=== PATIENT | female | born 1945 | race Caucasian/White ===

== ENCOUNTER 2016-09-18 09:05 | Day surgery (SDC) ==
[2016-09-18] MEDS ORDERED: LIDOCAINE 1% 20 ML MDV ID ONE (09:45)
[2016-09-18] MEDS ORDERED: DIPRIVAN 20 ML VIAL IVP ONE (11:19)
[2016-09-18] MEDS ORDERED: VERSED ONE (11:19)
[2016-09-18 12:28] VITALS: BP 132/72; TEMP 98.1
--- NOTE | 2016-09-19 09:35 | OP ---
INDICATIONS FOR PROCEDURE: 71-year-old female presents for a screening colonoscopy exam. MEDICATIONS: SEE ANESTHESIA NOTES. PROCEDURE: COLONOSCOPY, SNARE POLYPECTOMY WITH BIOPSY RETRIEVAL OF POLYP. REPORT: The risks, benefits, alternatives and limitations were discussed in detail with the patient. Informed consent was obtained. After adequate sedation was achieved, a digital rectal exam revealed good tone, no masses. The colonoscope was introduced into the rectum and advanced under direct visual guidance to the cecum. The cecum was identified by the appendiceal orifice and IC valve. I then slowly withdrew the scope in a circumferential manner examining the mucosa quite carefully. I looked on the proximal and distal side of folds and flexures as best as possible. I was able to retroflex the scope in the right side of the colon as well as left side of the colon. The colonic mucosa was unremarkable its entire length except for a small diminutive polyp in the proximal sigmoid colon. I removed this by snare technique. I used a biopsy forcep to retrieve this diminutive polyp. No other abnormalities were noted including on retroflex view of the anal canal. The prep was good. The withdrawal time was 9 minutes and 0 seconds. The patient tolerated the procedure well with stable vital signs and pulse oximetry throughout. IMPRESSION: 1. DIMINUTIVE POLYP REMOVED AND RETRIEVED ABOVE. RECOMMENDATIONS: 1. Await pathology results. If there are adenomatous changes, I recommend a surveillance examination again in 5 years otherwise screening again in 10 years if she is clinically well, sooner if there are any signs or symptoms to indicate otherwise. 2. I will see her back in the office as needed. CC: DR. MARIANA STRAUSS
== END 2016-09-18 12:25 | disposition home or self-care (01) ==
LOC: SURG 09:05
PROVIDERS: ATTEND Internal Medicine Gastroenterology
DX: Z12.11 Encounter for screening for malignant neoplasm of colon (principal); D12.5 Benign neoplasm of sigmoid colon

== ENCOUNTER 2016-11-08 22:18 | Inpatient (IN) ==
--- NOTE | 2016-11-08 22:52 | ED.PDOC ---
General ED Provider: Dr. ELENI FITCH Chief Complaint: Fever Stated Complaint: Coughing conegsted, getting sputum yellow to green, fever of 100 at home. Time Seen by Physician: 22:49 Mode of Arrival: Walk-In Information Source: Patient Primary Care Provider: RADHA PEÑA Nursing and Triage Documentation Reviewed and Agree: Yes Respiratory Complaint Exam - Respiratory Complaint/Exam Symptoms Are: Still present Timing: Constant Initial Severity: Moderate Current Severity: Moderate Location: Chest Character: Reports: Productive cough Aggravating: Reports: URI Alleviating: Reports: None Associated Signs and Symptoms: Reports: URI, Nasal congestion. Denies: Rapid breathing, Dyspnea, Fever, Chills, Chest pain, Pleuritic chest pain, Wheezing, Hemoptysis, Dizziness, Calf pain, Calf swelling, Edema, Hoarseness, Sinus discomfort, Vomiting, Sore throat, Weight loss, Decreased oral intake, Increased thirst, Increased appetite, Increased urination History of Healthcare-Acquired Pneumonia: No Related Surgical History: Reports: None Pulmonary Embolism Risk Factors: None Cardiac Risk Factors: Reports: Hypertension Pseudomonas Risk Factors: Reports: None Tuberculosis Risk Factors: Reports: None Status Asthmaticus Risk Factors: Reports: None Home Oxygen Use: No Recent Stress Test: No Recent Echo/LV Function: No Current Antibiotic Use: No Current Asthma Medication Use: No Respiratory Distress: None Inadequate Respiratory Effort: No Dysphagia Present: No Stridor Present: No Retractions: Not Present Differential Diagnoses: Pneumonia, Bronchitis Review of Systems - Review Of Systems Constitutional: Reports: Fever, Malaise, Weakness Eyes: Reports: No symptoms Ears, Nose, Mouth, Throat: Reports: No symptoms Respiratory: Reports: Cough Cardiac: Reports: No symptoms GI: Reports: No symptoms : Reports: No symptoms Musculoskeletal: Reports: No symptoms Skin: Reports: No symptoms Neurological: Reports: No symptoms Endocrine: Reports: No symptoms Hematologic/Lymphatic: Reports: No symptoms All Other Systems: Reviewed and Negative Past Medical History - Past Medical History Previously Healthy: Yes Endocrine: Reports: Dyslipidemia Cardiovascular: Reports: None Respiratory: Reports: None Hematological: Reports: None Gastrointestinal: Reports: GERD Genitourinary: Reports: None Neuro/Psych: Reports: None Musculoskeletal: Reports: None Cancer: Reports: None Last Menstrual Period: 1992 - Surgical History General Surgical History: Reports: None - Family History Family History: Reports: None - Social History Smoking Status: Former smoker Hx Substance Use: No Alcohol Screening: Occasionally - Immunizations Tetanus Shot up to Date: No Physical Exam - Physical Exam Appearance: Ill-appearing, Obese Ill-appearing: Moderate Eyes: ANGELICA, EOMI, Conjunctiva clear ENT: Ears normal, Nose normal, Oropharynx normal Respiratory: Crackles (rt lower) Cardiovascular: RRR, Pulses normal, No rub, No murmur GI/: Soft, Nontender, No masses, Bowel sounds normal, No Organomegaly Musculoskeletal: Normal strength, ROM intact, No edema, No calf tenderness Skin: Warm, Dry, Normal color Neurological: Sensation intact, Motor intact, Reflexes intact, Cranial nerves intact, Alert, Oriented Psychiatric: Affect appropriate, Mood appropriate Interpretation - Radiology Interpretation Radiology Interpretation By: Radiologist Radiology Results: Positive Exam Interpreted: CT Scan Critical Care Note - Critical Care Note Total Time (mins): 30 Course - Course Hematology/Chemistry: 11/13/16 05:00 11/13/16 05:00 Orders, Labs, Meds: Lab Review 11/08/16 11/08/16 22:48 23:00 WBC 15.42 H RBC 4.63 Hgb 14.4 Hct 42.3 MCV 91.4 MCH 31.1 H MCHC 34.0 RDW Coeff of Seema 14.4 Plt Count 326 Immature Gran % (Auto) 0.5 Neut % (Auto) 88.3 Lymph % (Auto) 7.9 L Mclennan % (Auto) 3.0 Eos % (Auto) 0.0 Baso % (Auto) 0.3 Immature Gran # (Auto) 0.1 Neut # 13.6 H Lymph # 1.2 Mclennan # 0.5 Eos # 0.0 Baso # 0.0 Puncture Site lb O2 Saturation 93.0 L ABG pH 7.512 H* ABG pCO2 27.1 L ABG pO2 57.0 L* ABG HCO3 21.7 L ABG Total CO2 22 ABG Base Excess -1 Pierce Test + FiO2 % 21.0 Sodium 136 Potassium 3.8 Chloride 102 Carbon Dioxide 22 L Anion Gap 15.8 BUN 11 Creatinine 0.75 Estimated GFR (MDRD) 76.00 BUN/Creatinine Ratio 14.66 Glucose 115 Lactic Acid 8.3 Calcium 9.5 Total Bilirubin 0.64 AST 16 ALT 20 Alkaline Phosphatase 104 B-Natriuretic Peptide 49 Total Protein 7.3 Albumin 3.9 Globulin 3.4 Albumin/Globulin Ratio 1.15 Procalcitonin 0.05 Orders Category Date Time Status ABG DRAW REQUEST Stat CARDIO 11/08/16 22:49 Completed ABG Stat LAB 11/08/16 22:48 Completed B-TYPE NATRIURETIC PEPTIDE Stat LAB 11/08/16 23:00 Completed BLOOD CULTURE Stat LAB 11/08/16 23:00 Results CBC W/ AUTO DIFF Stat LAB 11/08/16 23:00 Completed COMPREHENSIVE METABOLIC PANEL Stat LAB 11/08/16 23:00 Completed LACTIC ACID Stat LAB 11/08/16 23:00 Completed PROCALCITONIN Stat LAB 11/08/16 23:00 Completed Ipratropium/Albuterol Neb [Duoneb] MEDS 11/08/16 23:29 Discontinued 1 vial NEB .STK-MED ONE CT CHEST W/O CONTRAST Stat RADS 11/08/16 22:48 Completed Medications Generic Name Dose Route Start Last Admin Trade Name Freq PRN Reason Stop Dose Admin Acetaminophen 650 mg 11/08/16 23:37 11/11/16 05:08 Tylenol PO 650 mg Q4H PRN Administration Mild Pain Amlodipine Besylate 5 mg 11/13/16 09:00 11/13/16 10:15 Norvasc PO 5 mg DAILY GERI Administration Aspirin 81 mg 11/09/16 21:00 11/12/16 20:37 Aspirin Ec PO 81 mg BEDTIME GERI Administration Bisoprolol Fumarate 10 mg 11/13/16 09:00 11/13/16 10:15 Zebeta PO 10 mg DAILY GERI Administration Calcium/Vitamin D 1 each 11/09/16 09:00 11/13/16 10:14 Calcium 500 + Vit D 200 Mg Tablet PO 1 each BID GERI Administration Enoxaparin Sodium 40 mg 11/09/16 09:00 11/13/16 10:13 Lovenox SUBCUT 40 mg DAILY GERI Administration Guaifenesin 600 mg 11/09/16 09:00 11/13/16 10:14 Mucinex PO 600 mg Q12HR GERI Administration Ceftriaxone Sodium 1 gm/ 50 mls @ 75 mls/hr 11/09/16 21:00 11/12/16 20:35 Sodium Chloride IV 75 mls/hr BEDTIME GERI Administration Levalbuterol HCl 1 vial 11/09/16 06:00 11/13/16 05:29 Xopenex 1.25 Mg NEB 1 vial RTQ8H GERI Administration Lisinopril 20 mg 11/13/16 09:00 11/13/16 10:14 Zestril PO 20 mg BID GERI Administration Loratadine 10 mg 11/11/16 09:00 11/13/16 10:15 Claritin PO 10 mg DAILY GERI Administration Magnesium Hydroxide 30 ml 11/11/16 08:24 11/11/16 08:30 Milk Of Magnesia PO 30 ml DAILY PRN Administration Constipation Pantoprazole Sodium 40 mg 11/09/16 08:00 11/13/16 05:39 Protonix PO 40 mg QDAC GERI Administration Prednisone 10 mg 11/12/16 08:00 11/13/16 09:09 Prednisone PO 10 mg BIDWM GERI Administration Promethazine HCl/Codeine 10 ml 11/12/16 13:12 11/12/16 13:24 Phenergan With Codeine 6.25/10 Mg/5 Ml PO 10 ml Q6H PRN Administration Cough Simvastatin 40 mg 11/09/16 21:00 11/12/16 20:37 Zocor PO 40 mg BEDTIME GERI Administration Sodium Chloride 1 syr 11/11/16 21:00 11/13/16 05:29 Saline Flush IVF 1 syr Q8HR GERI Administration Discontinued Medications Generic Name Dose Route Start Last Admin Trade Name Freq PRN Reason Stop Dose Admin Albuterol/Ipratropium 1 vial 11/08/16 23:46 11/08/16 23:47 Duoneb NEB 11/08/16 23:47 Not Given ONCE STA Alprazolam 0.5 mg 11/13/16 08:12 11/13/16 09:10 Xanax PO 11/13/16 08:13 0.5 mg ONCE STA Administration Azithromycin 500 mg 11/09/16 09:00 11/11/16 08:22 Zithromax PO 11/12/16 08:00 500 mg DAILY GERI Administration Benzonatate 200 mg 11/09/16 09:00 11/12/16 15:20 Tessalon Perles PO Not Given TID GERI Bisoprolol Fumarate 5 mg 11/12/16 08:40 11/12/16 08:47 Zebeta PO 11/12/16 08:41 5 mg ONCE STA Administration Bisoprolol Fumarate 5 mg 11/12/16 21:00 11/12/16 20:37 Zebeta PO 5 mg BID GERI Administration Bisoprolol Fumarate 10 mg 11/13/16 08:12 Zebeta PO BID GERI Enalaprilat 1.25 mg 11/12/16 06:11 11/12/16 06:19 Vasotec Iv IVP 11/12/16 06:12 1.25 mg ONCE STA Administration Enalaprilat 1.25 mg 11/13/16 05:23 11/13/16 05:29 Vasotec Iv IVP 11/13/16 05:24 1.25 mg ONCE STA Administration Ceftriaxone Sodium 1 gm/ 50 mls @ 75 mls/hr 11/08/16 23:45 11/09/16 00:06 Sodium Chloride IV 75 mls/hr DAILY GERI Administration Sodium Chloride 1,000 mls @ 75 mls/hr 11/08/16 23:45 11/09/16 00:02 Sodium Chloride IV 75 mls/hr .[id number] GERI Administration Sodium Chloride 1,000 mls @ 40 mls/hr 11/09/16 08:01 11/11/16 15:35 Sodium Chloride IV Not Given .Q25H GERI Ketorolac Tromethamine 30 mg 11/11/16 15:24 11/11/16 17:31 Toradol IVP 11/11/16 15:25 Not Given ONCE STA Lisinopril 20 mg 11/11/16 15:30 11/12/16 08:47 Zestril PO 20 mg DAILY GERI Administration Lisinopril 20 mg 11/12/16 08:41 11/12/16 08:46 Zestril PO 11/12/16 08:42 20 mg ONCE STA Administration Lorazepam 1 mg 11/12/16 08:29 11/12/16 08:47 Ativan IVP 11/12/16 08:30 1 mg ONCE STA Administration Methylprednisolone Sodium Succinate 60 mg 11/08/16 23:45 11/10/16 13:51 Solu-Medrol 125 Mg IVP 60 mg Q8HR GERI Administration Methylprednisolone Sodium Succinate 40 mg 11/10/16 21:00 11/11/16 08:22 Solu-Medrol 125 Mg IVP 40 mg Q12HR GERI Administration Potassium Chloride 40 meq 11/09/16 08:01 11/09/16 08:33 K-Dur PO 11/09/16 08:02 40 meq ONCE STA Administration Prednisone 10 mg 11/11/16 21:00 11/11/16 20:04 Prednisone PO 10 mg BID GERI Administration Sodium Chloride 1 syr 11/09/16 00:07 11/09/16 00:08 Saline Flush IVF 1 syr PRN PRN Administration To flush IV Vital Signs: Temp Pulse Resp BP Pulse Ox 11/08/16 23:30 96 11/08/16 22:19 99.8 F H 118 H 20 130/89 93 L Departure - Departure Time of Disposition: 23:00 Disposition: ADMITTED INPATIENT Discharge Problem: Bilateral pneumonia Qualifiers: Pneumonia type: due to unspecified organism Lung location: lower lobe of lung Qualifier Code: (J18.9) Pneumonia, unspecified organism Condition: Stable Pt referred to PMD for follow-up: No Allergies/Adverse Reactions: Allergies ibuprofen Adverse Reaction (Verified 11/08/16 22:31) Abdominal Pain NSAIDS (Non-Steroidal Anti-Inflamma Adverse Reaction (Verified 11/08/16 22:31) ABD PAIN Home Medications: Ambulatory Orders Aspirin [Lo-Dose Aspirin EC] 81 mg PO BEDTIME 09/17/16 Calcium Carbonate [Calcium] 600 mg PO BID 09/17/16 Lansoprazole [Prevacid] 30 mg PO DAILY 09/17/16 Simvastatin [Zocor] 40 mg PO BEDTIME 09/17/16 Disposition Discussed With: Patient, Family
--- NOTE | 2016-11-08 23:16 | CT ---
EXAM: CT of the chest without contrast. HISTORY: Cough. PROCEDURE: Contiguous axial CT images of the chest without contrast with coronal and sagittal refor mats. FINDINGS: The heart is within normal limits in size. The thoracic aorta is within normal limits in diameter. The mediastinum is normal in appearance. There are bibasilar infiltrates and patchy areas of consolidation. There is a small hiatal hernia. The adrenal glands and liver are normal in appear ance. There are gallstones in the gallbladder. The gallbladder is enlarged measuring 4.4 cm in brissa meter. Impression: Bibasilar infiltrates and consolidation consistent with pneumonia. Small hiatal hernia. Cholelithiasis with mildly enlarged gallbladder as described.
[2016-11-08 23:21] LABS: ABG PCO2 27.1 mmHg (35-45); ABG PH 7.512 (7.35-7.45)
[2016-11-08 23:21] LABS: BASOPHILS % (AUTO) 0.3 % (0.0-3.0); HEMATOCRIT 42.3 % (37.0-47.0); HEMOGLOBIN 14.4 g/dl (12.0-16.0); IMMATURE GRANULOCYTE % (AUTO) 0.5 % (0.0-5.0); LYMPHOCYTES # (AUTO) 1.2 K/uL (0.60-3.4); LYMPHOCYTES % (AUTO) 7.9 (10.0-50.0); MEAN CORPUSCULAR HEMOGLOBIN 31.1 pg (27.0-31.0); MEAN CORPUSCULAR VOLUME 91.4 fl (81.0-99.0); MONOCYTES # (AUTO) 0.5 K/uL (0.4-2.0); NEUTROPHILS # (AUTO) 13.6 K/ul (2.0-6.9); NEUTROPHILS % (AUTO) 88.3; PLATELET COUNT 326 10^3/uL (140-440); RED BLOOD COUNT 4.63 10^6/ul (4.20-5.40); WHITE BLOOD COUNT 15.42 K/ul (4.6-10.2)
[2016-11-08 23:22] LABS: ABG BASE EXCESS -1 (-2.0-2.0); ABG HCO3 21.7 (22.0-26.0); ABG TCO2 22 (22.0-28.0)
[2016-11-08] MEDS ORDERED: DUONEB NEB ONE (23:29)
[2016-11-08 23:37] LABS: ALBUMIN 3.9 g/dL (3.4-5.0); ALBUMIN/GLOBULIN RATIO 1.15; ANION GAP 15.8; BILIRUBIN,TOTAL 0.64 mg/dL (0.00-1.20); BUN/CREATININE RATIO 14.66; CALCIUM 9.5 mg/dL (8.2-10.2); CREATININE 0.75 mg/dL (0.60-1.30); POTASSIUM 3.8 mmol/L (3.5-5.10); TOTAL PROTEIN 7.3 g/dL (5.8-8.1)
[2016-11-08] MEDS ORDERED: ROCEPHIN 1 GM in SODIUM CHLORIDE 50 ML IV SCH (23:45)
[2016-11-08] MEDS ORDERED: SODIUM CHLORIDE 1,000 ML IV SCH (23:45)
[2016-11-08] MEDS ORDERED: DUONEB NEB STA (23:46)
[2016-11-08] MEDS ORDERED: ROCEPHIN ONE (23:55)
[2016-11-09] MEDS: SOLU-MEDROL 125 MG IVP SCH ×4 (00:04→20:35)
[2016-11-09 01:38] VITALS: BMI 27.8
[2016-11-09] MEDS: XOPENEX 1.25 MG NEB SCH ×3 (05:03→21:23)
[2016-11-09 05:44] LABS: BASOPHILS % (AUTO) 0.1 % (0.0-3.0); EOSINOPHILS % (AUTO) 0.1 % (0.0-7.0); HEMATOCRIT 41.1 % (37.0-47.0); HEMOGLOBIN 14.1 g/dl (12.0-16.0); IMMATURE GRANULOCYTE % (AUTO) 0.7 % (0.0-5.0); LYMPHOCYTES % (AUTO) 5.7 (10.0-50.0); MEAN CORPUSCULAR HEMOGLOBIN 31.4 pg (27.0-31.0); MEAN CORPUSCULAR HGB CONC 34.3 (31.8-35.4); MEAN CORPUSCULAR VOLUME 91.5 fl (81.0-99.0); MONOCYTES # (AUTO) 0.2 K/uL (0.4-2.0); MONOCYTES % (AUTO) 1.2 (0-10); NEUTROPHILS # (AUTO) 15.6 K/ul (2.0-6.9); NEUTROPHILS % (AUTO) 92.2; PLATELET COUNT 332 10^3/uL (140-440); RED BLOOD COUNT 4.49 10^6/ul (4.20-5.40); WHITE BLOOD COUNT 16.91 K/ul (4.6-10.2)
[2016-11-09] MEDS ORDERED: DUONEB NEB SCH (06:00)
[2016-11-09 06:02] LABS: ALBUMIN 3.7 g/dL (3.4-5.0); ALBUMIN/GLOBULIN RATIO 1.06; ANION GAP 17.4; BILIRUBIN,TOTAL 0.48 mg/dL (0.00-1.20); BUN/CREATININE RATIO 14.47; CALCIUM 9.3 mg/dL (8.2-10.2); CREATININE 0.76 mg/dL (0.60-1.30); POTASSIUM 3.4 mmol/L (3.5-5.10); TOTAL PROTEIN 7.2 g/dL (5.8-8.1)
[2016-11-09 06:16] LABS: CREATINE KINASE 32 U/L
[2016-11-09] MEDS ORDERED: K-DUR PO STA (08:01)
[2016-11-09] MEDS: MUCINEX PO SCH ×2 (08:34→20:19)
[2016-11-09] MEDS: TESSALON PERLES PO SCH ×3 (08:34→20:20)
[2016-11-09] MEDS: SODIUM CHLORIDE 1,000 ML IV SCH ×2 (08:35→18:36)
[2016-11-09] MEDS: CALCIUM 500 + VIT D 200 MG TABLET PO SCH ×2 (08:35→20:19)
[2016-11-09] MEDS: PROTONIX PO SCH (08:35)
[2016-11-09] MEDS: LOVENOX SUBCUT SCH (08:36)
[2016-11-09] MEDS: ZITHROMAX PO SCH (08:36)
[2016-11-09] MEDS: TYLENOL PO PRN ×3 (08:38→20:20)
[2016-11-09] MEDS ORDERED: NON-FORMULARY MEDICATION (Lansoprazole [Prevacid] 30 MG) PO SCH ×22 (09:00)
[2016-11-09] MEDS ORDERED: NON-FORMULARY MEDICATION (Calcium Carbonate [Calcium] 600 MG) PO SCH ×22 (09:00)
--- NOTE | 2016-11-09 09:44 | PCM.PROG ---
Attending Provider: ATTENDING PROVIDER: Dr. ELENI JENKINS DATE OF SERVICE: 11/09/16 - Dr. Jenkins Hospitalist SUBJECTIVE: This 71 year old WHITE/ F was hospitalized 11/08/16. The patient was admitted from ER with bilateral lower pneumonia, community acquired, and severe hypoxemia. The patient does not have history of COPD in the past but had smoking history, quit 4 years ago. Today she feels better, still coughing with congestion. No fever or chills. No PND or orthopnea. REVIEW OF SYSTEMS: CONSTITUTIONAL: No fever, no chills. ENDOCRINE: No weight loss or weight gain. HEENT: No sinus drainage, no sore throat. CVS: No angina symptoms. No CHF symptoms. No palpitations. No atypical chest pain for CAD. No shortness of breath. No PND, no orthopnea. RESPIRATORY: Cough; no hemoptysis. GI: No melena. No abdominal pain. No nausea, no vomiting. : No hematuria. No polyuria. SKIN: No rash. No wounds. MUSCULOSKELETAL: No pain. CRUISE GUIDE: No blackout, no dizziness. No headache. No double vision. PSYCHIATRIC: Not anxious; no depression. No suicidal thoughts. No homicidal thoughts. PHYSICAL EXAMINATION: GENERAL: Lying in bed in no distress. VITAL SIGNS: Temperature 98.4 F, Pulse 112, Respiratory Rate 24, BP 140/71, Pulse Ox 92% HEENT: Normocephalic, atraumatic. Mucosa is dry, pallor positive. NECK: No JVP, no carotid bruit. No lymphadenopathy. CARDIAC: S1, S2, no S3. No murmur, gallop or regurgitation. LUNGS: Basilar crackles bilaterally, no wheezing ABDOMEN: Soft, non-tender. Bowel sounds active. No rigidity, guarding or CVA tenderness. EXTREMITIES: No clubbing, cyanosis or edema. NEUROLOGIC: Awake, alert and oriented x3. LYMPHATIC: No palpable lymph nodes SKIN: Not dry. Intact. MUSCULOSKELETAL: No joint swelling. LAB REVIEW: 11/09/16 05:30 11/09/16 05:30 11/09/16 05:30: WBC 16.91 H, RBC 4.49, Hgb 14.1, Hct 41.1, MCV 91.5, MCH 31.4 H , MCHC 34.3, RDW Coeff of Seema 14.4, Plt Count 332, Immature Gran % (Auto) 0.7, Neut % (Auto) 92.2, Lymph % (Auto) 5.7 L, Treasure % (Auto) 1.2, Eos % (Auto) 0.1, Baso % (Auto) 0.1, Immature Gran # (Auto) 0.1, Neut # 15.6 H, Lymph # 1.0, Treasure # 0.2 L, Eos # 0.0, Baso # 0.0, Sodium 140, Potassium 3.4 L, Chloride 105, Carbon Dioxide 21 L, Anion Gap 17.4, BUN 11, Creatinine 0.76, Estimated GFR ( MDRD) 75.00, BUN/Creatinine Ratio 14.47, Glucose 174 H D, Calcium 9.3, Total Bilirubin 0.48, AST 15, ALT 19, Alkaline Phosphatase 97, Total Creatine Kinase 32, Troponin I < 0.0100, Total Protein 7.2, Albumin 3.7, Globulin 3.5, Albumin/ Globulin Ratio 1.06 ASSESSMENT: 1. Bilateral respiratory failure secondary to community acquired pneumonia. 2. Hypoxemia. 3. Dyslipidemia. 4. Hypokalemia. PLAN: 1. Continue antibiotics 2. Encourage more liquids 3. Decrease IV fluids to 40 mL/hr. 4. Continue breathing treatments. 5. Mucinex 600 mg b.i.d. 6. Tessalon Perles 200 mg t.i.d. 7. Lovenox 40 mg SQ daily. Plan and coordination of the patient's care discussed in the presence of Machine Turner and nurse. CONDITION: Stable SCRIBED BY: AILYN FERNANDEZ Weave Defect Charting Clerk scribed while in presence of service performed by Dr. ELENI JENKINS on 11/09/16 ([id number])
[2016-11-09 14:23] LABS: CREATINE KINASE 41 U/L
[2016-11-09] MEDS: ASPIRIN EC PO SCH (20:18)
[2016-11-09] MEDS: ZOCOR PO SCH (20:19)
[2016-11-09] MEDS: ROCEPHIN 1 GM in SODIUM CHLORIDE 50 ML IV SCH (20:20)
[2016-11-10 04:50] LABS: BASOPHILS % (AUTO) 0.1 % (0.0-3.0); HEMATOCRIT 37.3 % (37.0-47.0); HEMOGLOBIN 12.7 g/dl (12.0-16.0); IMMATURE GRANULOCYTE % (AUTO) 1.1 % (0.0-5.0); LYMPHOCYTES # (AUTO) 1.4 K/uL (0.60-3.4); LYMPHOCYTES % (AUTO) 5.4 (10.0-50.0); MEAN CORPUSCULAR HEMOGLOBIN 31.3 pg (27.0-31.0); MEAN CORPUSCULAR VOLUME 91.9 fl (81.0-99.0); MONOCYTES # (AUTO) 0.5 K/uL (0.4-2.0); MONOCYTES % (AUTO) 2.1 (0-10); NEUTROPHILS # (AUTO) 23.4 K/ul (2.0-6.9); NEUTROPHILS % (AUTO) 91.3; PLATELET COUNT 332 10^3/uL (140-440); RED BLOOD COUNT 4.06 10^6/ul (4.20-5.40); WHITE BLOOD COUNT 25.66 K/ul (4.6-10.2)
[2016-11-10 05:07] LABS: ALBUMIN 3.2 g/dL (3.4-5.0); ALBUMIN/GLOBULIN RATIO 0.97; ANION GAP 15.1; BILIRUBIN,TOTAL 0.23 mg/dL (0.00-1.20); BUN/CREATININE RATIO 29.23; CALCIUM 9.4 mg/dL (8.2-10.2); CREATININE 0.65 mg/dL (0.60-1.30); POTASSIUM 4.1 mmol/L (3.5-5.10); TOTAL PROTEIN 6.5 g/dL (5.8-8.1)
[2016-11-10] MEDS: XOPENEX 1.25 MG NEB SCH ×3 (05:15→22:45)
[2016-11-10] MEDS: SOLU-MEDROL 125 MG IVP SCH ×3 (05:42→20:31)
[2016-11-10] MEDS: PROTONIX PO SCH (05:42)
[2016-11-10] MEDS: MUCINEX PO SCH ×2 (08:39→20:32)
[2016-11-10] MEDS: TESSALON PERLES PO SCH ×3 (08:39→20:33)
[2016-11-10] MEDS: ZITHROMAX PO SCH (08:39)
[2016-11-10] MEDS: CALCIUM 500 + VIT D 200 MG TABLET PO SCH ×2 (08:39→20:33)
[2016-11-10] MEDS: LOVENOX SUBCUT SCH (08:41)
[2016-11-10] MEDS: ROCEPHIN 1 GM in SODIUM CHLORIDE 50 ML IV SCH (20:32)
[2016-11-10] MEDS: SODIUM CHLORIDE 1,000 ML IV SCH (20:32)
[2016-11-10] MEDS: ASPIRIN EC PO SCH (20:33)
[2016-11-10] MEDS: ZOCOR PO SCH (20:33)
[2016-11-10] MEDS: TYLENOL PO PRN (20:34)
[2016-11-11] MEDS: TYLENOL PO PRN (05:08)
[2016-11-11 05:09] LABS: BASOPHILS # (AUTO) 0.1 K/uL (0-0.2); BASOPHILS % (AUTO) 0.2 % (0.0-3.0); HEMATOCRIT 35.8 % (37.0-47.0); HEMOGLOBIN 12.2 g/dl (12.0-16.0); IMMATURE GRANULOCYTE % (AUTO) 3.2 % (0.0-5.0); LYMPHOCYTES # (AUTO) 1.7 K/uL (0.60-3.4); LYMPHOCYTES % (AUTO) 7.4 (10.0-50.0); MEAN CORPUSCULAR HEMOGLOBIN 31.3 pg (27.0-31.0); MEAN CORPUSCULAR HGB CONC 34.1 (31.8-35.4); MEAN CORPUSCULAR VOLUME 91.8 fl (81.0-99.0); MONOCYTES # (AUTO) 0.5 K/uL (0.4-2.0); MONOCYTES % (AUTO) 2.2 (0-10); NEUTROPHILS # (AUTO) 19.8 K/ul (2.0-6.9); PLATELET COUNT 370 10^3/uL (140-440)
[2016-11-11] MEDS: PROTONIX PO SCH (05:38)
[2016-11-11] MEDS: XOPENEX 1.25 MG NEB SCH ×3 (05:41→21:41)
[2016-11-11 05:44] LABS: ALBUMIN 3.1 g/dL (3.4-5.0); ALBUMIN/GLOBULIN RATIO 1.07; ANION GAP 14.9; BILIRUBIN,TOTAL 0.28 mg/dL (0.00-1.20); BUN/CREATININE RATIO 25.37; CREATININE 0.67 mg/dL (0.60-1.30); POTASSIUM 3.9 mmol/L (3.5-5.10)
[2016-11-11] MEDS: LOVENOX SUBCUT SCH (08:21)
[2016-11-11] MEDS: SOLU-MEDROL 125 MG IVP SCH (08:22)
[2016-11-11] MEDS: CALCIUM 500 + VIT D 200 MG TABLET PO SCH ×2 (08:22→20:03)
[2016-11-11] MEDS: TESSALON PERLES PO SCH ×3 (08:22→20:02)
[2016-11-11] MEDS: ZITHROMAX PO SCH (08:22)
[2016-11-11] MEDS: CLARITIN PO SCH (08:23)
[2016-11-11] MEDS ORDERED: MILK OF MAGNESIA PO PRN (08:24)
[2016-11-11] MEDS: MUCINEX PO SCH ×2 (08:27→20:03)
--- NOTE | 2016-11-11 11:32 | DI ---
Exam: Two-view chest x-ray. Date: 11/11/2016. Comparison: None. HISTORY: Pneumonia. FINDINGS: There is mild levoscoliotic curve in the lower thoracic spine. There is biapical pleural thickening. The lungs are clear. The cardiac silhouette and pulmonary vasculature are normal. ASV D is present. Impression: No acute intrathoracic findings. ASVD.
[2016-11-11] MEDS: ZESTRIL PO SCH (15:17)
[2016-11-11] MEDS ORDERED: TORADOL IVP STA (15:24)
[2016-11-11] MEDS: SODIUM CHLORIDE 1,000 ML IV SCH (15:35)
[2016-11-11] MEDS ORDERED: TORADOL ONE (17:22)
[2016-11-11] MEDS ORDERED: PREDNISONE ONE (19:53)
[2016-11-11] MEDS: ASPIRIN EC PO SCH (20:03)
[2016-11-11] MEDS: ZOCOR PO SCH (20:04)
[2016-11-11] MEDS: ROCEPHIN 1 GM in SODIUM CHLORIDE 50 ML IV SCH (20:05)
[2016-11-11] MEDS ORDERED: PREDNISONE PO SCH (21:00)
[2016-11-12 04:55] LABS: HEMATOCRIT 36.3 % (37.0-47.0); HEMOGLOBIN 12.3 g/dl (12.0-16.0); MEAN CORPUSCULAR HEMOGLOBIN 31.1 pg (27.0-31.0); MEAN CORPUSCULAR HGB CONC 33.9 (31.8-35.4); MEAN CORPUSCULAR VOLUME 91.9 fl (81.0-99.0); PLATELET COUNT 375 10^3/uL (140-440); RED BLOOD COUNT 3.95 10^6/ul (4.20-5.40); WHITE BLOOD COUNT 15.35 K/ul (4.6-10.2)
[2016-11-12 05:08] LABS: ANISOCYTOSIS NOT PRESENT (NOT PRESENT)
[2016-11-12 05:12] LABS: ALBUMIN/GLOBULIN RATIO 1.07; BILIRUBIN,TOTAL 0.29 mg/dL (0.00-1.20); BUN/CREATININE RATIO 34.84; CALCIUM 8.9 mg/dL (8.2-10.2); CREATININE 0.66 mg/dL (0.60-1.30); TOTAL PROTEIN 5.8 g/dL (5.8-8.1)
[2016-11-12] MEDS: XOPENEX 1.25 MG NEB SCH ×3 (05:46→21:43)
[2016-11-12 05:48] LABS: ABG BASE EXCESS 2 (-2.0-2.0); ABG HCO3 25.4 (22.0-26.0); ABG PCO2 35.5 mmHg (35-45); ABG PH 7.463 (7.35-7.45); ABG TCO2 27 (22.0-28.0)
[2016-11-12] MEDS: PROTONIX PO SCH (05:59)
[2016-11-12] MEDS ORDERED: VASOTEC IV IVP STA (06:11)
[2016-11-12] MEDS ORDERED: ATIVAN IVP STA (08:29)
[2016-11-12] MEDS ORDERED: ZEBETA PO STA (08:40)
[2016-11-12] MEDS ORDERED: ZESTRIL PO STA (08:41)
[2016-11-12] MEDS: ZESTRIL PO SCH (08:47)
--- NOTE | 2016-11-12 11:14 | PN ---
DATE OF SERVICE: 11/10/16 SUBJECTIVE: The patient was admitted with bilateral lower lobe pneumonia. The patient says that she is feeling some better but still has a hacking cough and getting yellow phlegm. No fever or chills. REVIEW OF SYSTEMS: CONSTITUTIONAL: No fever, no chills. HEENT: Normal. ENDOCRINE: No weight gain, no weight loss. CVS: No angina symptoms. No CHF symptoms. No palpitations. No atypical chest pain for CAD. No shortness of breath. No PND, no orthopnea. RESPIRATORY: No cough, no hemoptysis. GI: No nausea, no vomiting. No abdominal pain. : No hematuria. No polyuria. MUSCULOSKELETAL:. No joint swelling. PSYCHIATRIC: Not anxious. No depression. No suicidal thoughts. No homicidal thoughts. SKIN: Intact. No rash. PHYSICAL EXAMINATION: V/S: Blood pressure 122/69, respiratory rate 122/69, respiratory rate 24, heart rate 110 and temperature 97.7. HEENT: Normocephalic, atraumatic. Mucosa dry. NECK: Supple. No JVD, no carotid bruit. No lymphadenopathy. LUNGS: Decreased and basilar crackles. No rales or rhonchi. HEART: S1, S2 normal. No S3. Sinus tachy. No murmur, gallop or regurgitation. ABDOMEN: Soft, nontender. Bowel sounds active. No rigidity. No rebound or guarding. No CVA tenderness. EXTREMITIES: No clubbing, cyanosis or pedal edema. MUSCULOSKELETAL: No joint swelling. NEUROLOGIC: Awake, alert, oriented times three. No focal deficit. LYMPHATIC: No lymph nodes palpable. SKIN: Intact. LABS: Sodium 142, potassium 4.1, chloride 109, bicarb 23, BUN 19, creatinine 0.65 and WBC 25.66, hgb 12.7, hct 37.3, plt count 333. ASSESSMENT: 1. Bilateral community acquired pneumonia 2. Leukocytosis, most likely from steroids 3. Hypoxemia from the pneumonia 4. History of dyslipidemia 5. GERD 6. Hysterectomy PLAN: 1. Continue the Rocephin 2. Azithromycin 3. Solu-Medrol 4. Lovenox for the DVT prophylaxis 5. IV fluids TIME SPENT: More than 35 minutes MTDD
--- NOTE | 2016-11-12 13:01 | CT ---
EXAM: CT BRAIN HISTORY: Headache, high blood pressure TECHNIQUE: CT brain without intravenous contrast. 5-mm axial sections with Reformations. COMPARISON: None FINDINGS: Mild generalized atrophy. There is at least mild chronic microvascular ischemic change. Brain other pratt is unremarkable without distinct evidence of hemorrhage or large vessel distribution recent isc hemic infarction. There is no suggestion of acute hydrocephalus or subdural fluid collection. No m ass or mass effect. Cranium is intact. There is deformity of the right mastoid process possibly postoperative in nature . Mild to moderate areas of opacification within the visualized paranasal sinuses. IMPRESSION: 1. No acute intracranial process. 2. Chronic sinus disease.
[2016-11-12] MEDS ORDERED: PHENERGAN WITH CODEINE 6.25/10 MG/5 ML PO PRN (13:12)
[2016-11-12] MEDS: CLARITIN PO SCH (13:15)
[2016-11-12] MEDS: MUCINEX PO SCH ×2 (13:15→20:37)
[2016-11-12] MEDS: CALCIUM 500 + VIT D 200 MG TABLET PO SCH ×2 (13:15→20:37)
[2016-11-12] MEDS: LOVENOX SUBCUT SCH (13:15)
[2016-11-12] MEDS: PREDNISONE PO SCH ×2 (13:16→17:12)
--- NOTE | 2016-11-12 13:31 | US ---
EXAM: RENAL ULTRASOUND, BILATERAL HISTORY: Hypertension FINDINGS: Ultrasound renal, bilateral. Couch-scale ultrasound and color Doppler imaging was perform ed. The right kidney measures 11.4 x 4.1 x 5.3 centimeters. The left kidney measures 10.1 x 4.8 x 4.2 centimeters. General cortical echogenicity and volume are normal for age. No solid or cystic cortical masses. N o hydronephrosis is identified. Urinary bladder was less than adequately distended for optimal evaluation although was grossly unrem arkable. IMPRESSION: 1. Unremarkable kidneys for age. 2. Urinary bladder was less than adequately distended for optimal evaluation although was grossly u nremarkable.
--- NOTE | 2016-11-12 13:36 | PN ---
DATE OF SERVICE: 11/11/16 SUBJECTIVE: The patient was admitted with the bilateral pneumonia. Repeat chest x-ray in the morning was showing the betterment of the pneumonia but still the patient has some yellow phlegm. Blood pressure is elevated 158/88 and having some headache frontal and thinks maybe her sinus are hurting. REVIEW OF SYSTEMS: CONSTITUTIONAL: No fever, no chills. HEENT: Normal. ENDOCRINE: No weight gain, no weight loss. CVS: No angina symptoms. No CHF symptoms. No palpitations. No atypical chest pain for CAD. No shortness of breath. No PND, no orthopnea. RESPIRATORY: No cough, no hemoptysis. GI: No nausea, no vomiting. No abdominal pain. : No hematuria. No polyuria. MUSCULOSKELETAL:. No joint swelling. PSYCHIATRIC: Not anxious. No depression. No suicidal thoughts. No homicidal thoughts. SKIN: Intact. No rash. PHYSICAL EXAMINATION: V/S: Blood pressure 158/88, respiratory rate 20, heart rate 94, temperature 97.5. HEENT: Normocephalic, atraumatic. Mucosa dry. NECK: Supple. No JVD, no carotid bruit. No lymphadenopathy. LUNGS: Decreased with basilar crackles. No rales or rhonchi. HEART: S1, S2 normal sinus tachy. No S3. No murmur, gallop or regurgitation. ABDOMEN: Soft, nontender. Bowel sounds active. No rigidity. No rebound or guarding. No CVA tenderness. EXTREMITIES: No clubbing, cyanosis or pedal edema. MUSCULOSKELETAL: No joint swelling. NEUROLOGIC: Awake, alert, oriented times three. No focal deficit. LYMPHATIC: No lymph nodes palpable. SKIN: Intact. LABS: WBC 22.80, hgb 12.2, hct 35.8, plt count 370, sodium 144, potassium 3.9, chloride 108, bibcarb 24, BUN 17, creatinine 0.67. ASSESSMENT: 1. Bilateral lower lobe pneumonia per CAT scan 2. Leukocytosis, secondary to the steroids. 3. Headache from the sinus congestion 4. Status post hypokalemia 5. Hypertension 6. Dyslipidemia 7. Hysterectomy PLAN: 1. Toradol 30mg SUBCUT one time dose 2. Continue the Rocephin 1 gram daily 3. Lovenox for the DVT prophylaxis 4. Will stop the Solu-Medrol and will start the patient on Prednisone 10mg PO twice a day 5. PFT in the morning 6. Lisinopril 20mg PO daily first dose now. TIME SPENT: More than 30 minutes MTDD
--- NOTE | 2016-11-12 13:49 | US ---
EXAM: Ultrasound renal Doppler. HISTORY: Hypertension. COMPARISON: None available. TECHNIQUE: Couch-scale and color Doppler images. FINDINGS: Right kidney measures 11.7 cm in length. There is no hydronephrosis. Peak systolic velocity measurement in the right renal artery are 0.5, 0.6 and 0.5 meters per second in the origin, midportion and distal portion respectively. Right renal artery to aortic ratios sina ure 0.62, 0175 and 0.62. Right renal resistive index measures 0.68. Left kidney measures 10.4 cm in length. There is no hydronephrosis. Peak systolic velocity measurements in the left renal artery are 0.5, 0.8 and 0.4 meters per second in the origin, midportion and distal portion respectively. Left renal artery to aortic ratios measu re 0.60, 1.0 and 0.5. Left renal resistive index measures 0.56. Venous outflow is not assessed. IMPRESSION: No evidence for hemodynamically significant stenosis in the right or left renal artery.
[2016-11-12] MEDS: TESSALON PERLES PO SCH (15:20)
[2016-11-12] MEDS: ROCEPHIN 1 GM in SODIUM CHLORIDE 50 ML IV SCH (20:35)
[2016-11-12] MEDS: ZOCOR PO SCH (20:37)
[2016-11-12] MEDS: ASPIRIN EC PO SCH (20:37)
[2016-11-12] MEDS ORDERED: ZEBETA PO SCH (21:00)
[2016-11-13] MEDS ORDERED: VASOTEC IV IVP STA (05:23)
[2016-11-13] MEDS: XOPENEX 1.25 MG NEB SCH (05:29)
[2016-11-13 05:34] LABS: BASOPHILS # (AUTO) 0.1 K/uL (0-0.2); BASOPHILS % (AUTO) 0.5 % (0.0-3.0); EOSINOPHILS % (AUTO) 0.1 % (0.0-7.0); HEMATOCRIT 36.8 % (37.0-47.0); HEMOGLOBIN 12.2 g/dl (12.0-16.0); IMMATURE GRANULOCYTE % (AUTO) 4.9 % (0.0-5.0); LYMPHOCYTES # (AUTO) 4.1 K/uL (0.60-3.4); LYMPHOCYTES % (AUTO) 37.6 (10.0-50.0); MEAN CORPUSCULAR HEMOGLOBIN 30.7 pg (27.0-31.0); MEAN CORPUSCULAR HGB CONC 33.2 (31.8-35.4); MEAN CORPUSCULAR VOLUME 92.5 fl (81.0-99.0); MONOCYTES # (AUTO) 0.7 K/uL (0.4-2.0); MONOCYTES % (AUTO) 6.7 (0-10); NEUTROPHILS # (AUTO) 5.4 K/ul (2.0-6.9); NEUTROPHILS % (AUTO) 50.2; PLATELET COUNT 375 10^3/uL (140-440); RED BLOOD COUNT 3.98 10^6/ul (4.20-5.40); WHITE BLOOD COUNT 10.84 K/ul (4.6-10.2)
[2016-11-13] MEDS: PROTONIX PO SCH (05:39)
[2016-11-13 05:59] LABS: ALBUMIN/GLOBULIN RATIO 1.11; ANION GAP 15.2; BILIRUBIN,TOTAL 0.36 mg/dL (0.00-1.20); BUN/CREATININE RATIO 28.37; CALCIUM 9.5 mg/dL (8.2-10.2); CREATININE 0.74 mg/dL (0.60-1.30); POTASSIUM 4.2 mmol/L (3.5-5.10); TOTAL PROTEIN 5.7 g/dL (5.8-8.1)
[2016-11-13] MEDS ORDERED: XANAX PO STA (08:12)
[2016-11-13] MEDS ORDERED: ZEBETA PO SCH ×2 (08:12→09:00)
[2016-11-13] MEDS ORDERED: NORVASC PO SCH (09:00)
[2016-11-13] MEDS ORDERED: ZESTRIL PO SCH (09:00)
[2016-11-13] MEDS: PREDNISONE PO SCH (09:09)
--- NOTE | 2016-11-13 09:15 | PCM.PROG ---
Attending Provider: ATTENDING PROVIDER: Dr. ELENI FITCH DATE OF SERVICE: 11/13/16 SUBJECTIVE: This 71 year old WHITE/ F was hospitalized 11/08/16. The patient is lying in bed. The patient rested well. She wants to go home. Cough and congestion is better. Blood pressure is fluctuating, going up to 190/90. Vasotec IV push is given. No chest pain, no PND, no orthopnea. The patient is anxious. REVIEW OF SYSTEMS: CONSTITUTIONAL: No fever, no chills. ENDOCRINE: No weight loss or weight gain. HEENT: No sinus drainage, no sore throat. CVS: No angina symptoms. No CHF symptoms. No palpitations. No atypical chest pain for CAD. No shortness of breath. RESPIRATORY: No cough. No congestion. No hemoptysis. GI: No melena. No abdominal pain. No nausea, no vomiting. : No hematuria. No polyuria. SKIN: No rash. No wounds. MUSCULOSKELETAL: No pain. UPSTAIRS MAID: No blackout, no dizziness. No headache. No double vision. PSYCHIATRIC: Anxious. No depression. No suicidal thoughts. No homicidal thoughts. PHYSICAL EXAMINATION: GENERAL: Lying in bed in no distress. VITAL SIGNS: Temperature 97 F, Pulse 79, Respiratory Rate 16, BP 172/90, Pulse Ox 95% HEENT: Normocephalic, atraumatic. Mucosa is dry, pallor positive. NECK: No JVP, no carotid bruit. No lymphadenopathy. CARDIAC: S1, S2, no S3. No murmur, gallop or regurgitation. LUNGS: Clear to auscultation. ABDOMEN: Soft, non-tender. Bowel sounds active. No rigidity, guarding or CVA tenderness. EXTREMITIES: No clubbing, cyanosis or edema. NEUROLOGIC: Awake, alert and oriented x3. LYMPHATIC: No palpable lymph nodes SKIN: Not dry. Intact. MUSCULOSKELETAL: No joint swelling. LAB REVIEW: 11/13/16 05:00 11/13/16 05:00 11/13/16 05:00: WBC 10.84 H, RBC 3.98 L, Hgb 12.2, Hct 36.8 L, MCV 92.5, MCH 30.7, MCHC 33.2, RDW Coeff of Seema 14.6, Plt Count 375, Immature Gran % (Auto) 4.9, Neut % (Auto) 50.2, Lymph % (Auto) 37.6, [place] % (Auto) 6.7, Eos % (Auto) 0.1, Baso % (Auto) 0.5, Immature Gran # (Auto) 0.5, Neut # 5.4, Lymph # 4.1 H, [place] # 0.7, Eos # 0.0, Baso # 0.1, Sodium 144, Potassium 4.2, Chloride 103, Carbon Dioxide 30, Anion Gap 15.2, BUN 21 H, Creatinine 0.74, Estimated GFR ( MDRD) 77.00, BUN/Creatinine Ratio 28.37, Glucose 88, Calcium 9.5, Total Bilirubin 0.36, AST 17, ALT 33, Alkaline Phosphatase 66, Total Protein 5.7 L, Albumin 3.0 L, Globulin 2.7, Albumin/Globulin Ratio 1.11 ASSESSMENT: 1. Hypertension labile 2. Bilateral respiratory failure secondary to community acquired pneumonia, resolved 3. Hypoxemia. 4. Dyslipidemia. 5. Hypokalemia. PLAN: 1. Continue Rocephin 1 gm 2. Out of bed to chair 3. Activity as tolerated 4. Xanax 0.5 mg b.i.d. 5. Monitor blood pressure 6. Up and about 7. Norvasc 5 mg 8. Increase Zebeta 10 mg p.o. b.i.d. 9. Continue Lisinopril 20 mg b.i.d. Plan and coordination of the patient's care discussed in the presence of It Security Architect and nurse. CONDITION: Stable SCRIBED BY: AILYN FERNANDEZ, Pipe [employer] scribed while in presence of service performed by Dr. ELENI FITCH on 11/13/16 ([id number])
--- NOTE | 2016-11-13 09:25 | PN ---
DATE OF SERVICE: 11/12/16 SUBJECTIVE: The patient is upset as the patient's blood pressure is high and the nurse was not taking care over night. She is tearful. Otherwise still has cough and not able to get any phlegm. REVIEW OF SYSTEMS: CONSTITUTIONAL: No fever, no chills. HEENT: Normal. ENDOCRINE: No weight gain, no weight loss. CVS: No angina symptoms. No CHF symptoms. No palpitations. No atypical chest pain for CAD. No shortness of breath. No PND, no orthopnea. RESPIRATORY: Cough, no hemoptysis. GI: No nausea, no vomiting. No abdominal pain. : No hematuria. No polyuria. MUSCULOSKELETAL:. No joint swelling. PSYCHIATRIC: Not anxious. No depression. No suicidal thoughts. No homicidal thoughts. SKIN: Intact. No rash. PHYSICAL EXAMINATION: V/S: Blood pressure 155/82, respiratory rate 24, heart rate 90 and temperature 97.7. HEENT: Normocephalic, atraumatic. Mucosa dry. NECK: Supple. No JVD, no carotid bruit. No lymphadenopathy. LUNGS: Decreased and some crackles basilar. Clear to auscultation. No rales or rhonchi. HEART: S1, S2 normal. No S3. No murmur, gallop or regurgitation. ABDOMEN: Soft, nontender. Bowel sounds active. No rigidity. No rebound or guarding. No CVA tenderness. EXTREMITIES: No clubbing, cyanosis or pedal edema. MUSCULOSKELETAL: No joint swelling. NEUROLOGIC: Awake, alert, oriented times three. No focal deficit. LYMPHATIC: No lymph nodes palpable. SKIN: Intact. LABS: WBC 15.35, hgb 12.3, hct 36.2, plt count 275, sodium 144, potassium 4.0, chloride 106, bicarb 25, BUN 23, creatinine 0.66 ASSESSMENT: 1. Bilateral community acquired pneumonia which is getting better 2. Hypertension and new onset and uncontrolled 3. History of dyslipidemia 4. GERD 5. Hysterectomy PLAN: 1. Will do renal Doppler for the elevated blood pressure 2. Echocardiogram 3. Pulmonary function test 4. Ativan 1mg 5. Zebeta per Dr. Morgan's suggestion Will follow the patient in daily rounds. TIME SPENT: More than 30 minutes MTDD
[2016-11-13] MEDS: LOVENOX SUBCUT SCH (10:13)
[2016-11-13] MEDS: MUCINEX PO SCH (10:14)
[2016-11-13] MEDS: CALCIUM 500 + VIT D 200 MG TABLET PO SCH (10:14)
[2016-11-13] MEDS: CLARITIN PO SCH (10:15)
[2016-11-13 12:26] VITALS: BP 123/71; TEMP 96.5
--- NOTE | 2016-11-14 10:28 | ECHO2D ---
Date of Exam: 11/12/16 Ordering Physician: HOSPITALIST--ELENI FITCH Reason for Echo: HYPERTENSION, SHORT OF BREATH M-Mode Normal Adult Results LV Dimensions Normal Adult Results AoV Opening excursions >1.6 >1.6 LVEDD-base- 3.5-5.8 4.5 Ao root dimensions 2.0-3.7 3.1 LVESD-base- 3.1-4.6 L. Atrium dimensions 1.9-3.8 3.8 Post. Wall thickness 0.8-1.1 1.1 IV septum (thickness) 0.7-1.2 1.0 Post. Wall excursion 0.72-1.3 NORMAL Septal motion NORMAL Systolic motion R. Ventricular cavity 1.5-2.0 NORMAL LVEF 60% 65% Paradoxical septal wall motion NORMAL 2-D : 2-D M Mode Echocardiogram was performed using apical four chamber and left parasternal long and short axis views. Mitral, tricuspid and aortic valves appear to be normal. Contractility of the left ventricle seems to be normal, so is the cavity size. Left atrial cavity size and aortic root appear to be normal. There is no pericardial effusion. There is no thrombus noted in the left ventricular or left aortic cavity. No mitral valve prolapse noted. M-MODE: MV: NORMAL AV: NORMAL TV: NORMAL PV: CHAMBER SIZE: NORMAL WALL MOTION: NORMAL PERICARDIUM: NORMAL INTERPRETATION: 1. NORMAL 2 "D" "M" MODE ECHO [facility]
--- NOTE | 2016-12-13 15:13 | DS ---
DATE OF SERVICE: 11/13/16 FINAL DIAGNOSIS: 1. Hypertension, labile 2. Respiratory failure secondary to bilaterally community acquired pneumonia 3. Hypoxemia 4. Dyslipidemia 5. Hypokalemia, resolved 6. GERD 7. Hysterectomy 8. History of nicotine use. DISCHARGE INSTRUCTIONS: Discharge the patient home. Followup with Dr. Morgan as scheduled. MEDICATIONS AT DISCHARGE: Prevacid 30mg Po daily Calcium 600mg PO twice a day Zocor 40mg Po bedtime Aspirin 81mg PO bedtime Keflex 500mg PO Q 12 hours Norvasc 5mg PO QPM Symbicort 80-4.5ncg two puff IH twice a day Prednisone 10mg PO twice a day Bisoprolol Fumarate 10mg PO daily NEW PRESCRIPTIONS: Keflex 500mg twice a day for 5 days. Prednisone 10mg twice a day for 5 days Norvasc 5mg PO daily Zebeta 10mg PO daily Symbicort two puff twice a day DIET INSTRUCTIONS: Cardiac and healthy ACTIVITY: Get plenty of rest Drink lots of water Take Probiotics SMOKING: Former Smoker DISEASE SPECIFIC EDUCATION: Labile hypertension COPD Hypoxemia Risk of stroke been discussed and verbalized understanding. HOSPITAL COURSE: Myla Garnett who is a Dr. Morgan patient as Dr. Morgan was out of town I admitted the patient as patient was having the fever, chills and was not feeling good and came to the emergency room and was seen by ER physician. Initial WBC was 15, 000, ABG done with showed the pH 7.512, pCO2 27.1, pO2 57. CT of the chest done in the emergency room showed bibasilar infiltrate consistent with pneumonia, small hiatal hernia and Cholelithiasis. With the fever, hypoxemia and bilateral pneumonia the patient was admitted to the hospital and started on the Rocephin and Azithromycin, Breathing treatment, Solu-Medrol 60mg Q 8 hours, Lovenox for the DVT prophylaxis and IV fluids were given. The patient's blood pressure was high and the patient was given some Vasotec and Norvasc being added. Then Zebeta been added by Dr. Morgan. Gradually the patient was started feeling better and CT head was done and did not show any stroke. Ultrasound of abdomen done to make sure there is no obstruction. I asked Dr. Morgan to do an echocardiogram in review of her labile hypertension. Courteous enough did the echocardiogram which showed the ejection fraction 65% and no enlargement of the heart. With the change of medication the patient's blood pressure was getting better 132/76 and 123/71. No further complication during the hospital stay of the patient. As patient was doing good and did not have complication the patient being discharged home. TIME SPENT: MORE THAN 55 MINUTES MTDD
== END 2016-11-13 02:10 | disposition home or self-care (01) | DRG 193 ==
LOC: ED 22:18 → MEDSURG B 23:36 → SCU 11-09 00:27 → MEDSURG B 11-13 01:30
PROVIDERS: ADMIT Emergency Medicine; ATTEND Emergency Medicine
DX: J18.9 Pneumonia, unspecified organism (principal); I10 Essential (primary) hypertension; J96.91 Respiratory failure, unspecified with hypoxia; R50.9 Fever, unspecified; R05 Cough; J32.9 Chronic sinusitis, unspecified; E78.5 Hyperlipidemia, unspecified; E87.6 Hypokalemia; K21.9 Gastro-esophageal reflux disease without esophagitis; K44.9 Diaphragmatic hernia without obstruction or gangrene; K80.20 Calculus of gallbladder without cholecystitis without obstruction; Z87.891 Personal history of nicotine dependence; Z79.82 Long term (current) use of aspirin; Z79.899 Other long term (current) drug therapy
CPT/HCPCS: 36415; 76770; 80053; 82550; 82803; 83605; 83880; 84145; 84484; 85007; 85025; 87040; 87070; 87081; 93005; 93010; 94640; 96361; 96365; 96375; 99284

== ENCOUNTER 2017-12-05 11:00 | Outpatient (RCR) ==
--- NOTE | 2017-11-20 15:48 | RS.OPPTEV2 ---
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 pt reports new onset of radicular pain into RLE. Prior Level of Function.....Patient was independent with: ADL's, Self Care, Caregiving, Ambulation/Mobility, Community Integration/Access Functional Limitations: Pushing, Pulling, Lifting, Carrying, Standing, Bending, Ambulation Current Subjective/complaints:: pt states she is unable to ride her horse due to LBP and pain in RLE. pt also reports that pain increases with standing and walking. 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 mobility walking and moving around CI Source of G Code score: oswestry low back pain Observation - Observation Posture: Forward Head, Rounded Shoulders, Scoliosis Handedness: Right Gait - Gait Pattern Gait Comments: pt amb with shifted posture to L General Range of Motion: BUE WFL's. BLE WFL's except R hip add is limited due to pain Muscle Strength: BUE 5/5. LLE 5/5. RLE hip flex 4/5, knee flex/ext 4+/5, ankle DF/PF 4+/5 - ROM Lumbar Flexion: Hand reach to patellae Sidebending to Left: Reach to Lateral Joint Line Sidebending to Right: Reach to Lateral Joint Line Lumbar Spine ROM Limitations: Soft Tissue Tightness, Muscle Weakness, Pain Comments: pt limited with lumbar flex as well as side bending with increased pain. - Strength Trunk Extension: 3 Fair Trunk Flexion: 3- Fair- - Special Tests DEISY Test: Positive Right SLR Test: Negative Right Seated Dural Stretch Test: Negative Right SI Joint Compression: Positive Palpation Palpation Findings: Tenderness, Trigger Point Comments:: trigger point noted on R PSIS Sensation - Sensation Right Upper Extremity: Intact/Normal Left Upper Extremity: Intact/Normal Right Lower Extremity: Impaired (n/t RLE with radicular pain RLE) Left Lower Extremity: Intact/Normal Balance - Sitting Balance Static Sitting Balance: Normal Dynamic Sitting Balance: Normal - Standing Balance Static Standing Balance: Normal Dynamic Standing Balance: Normal - Treatment Modality: Electrical Stim Unattended Parameters/Method Applied: IFC x 20 mins at 10ma Treatment Area: R SI Patient Position: Sitting - Heat/Cryotherapy Treatment: Hot Pack Comments:: R lumbar area Interventions - Exercise/Activities/Manual Therapy Exercises/Activities: pt received hamstring stretch, muscle energy technique with R ext, L flex resisted, lower trunk rotation Manual Therapy: n/a HOME EXERCISE PROGRAM: pt given written HEP including prone lying, hamstring stretch, isometric hip add, lower trunk rotation stretch to L, - Charges Timed Code Treatment Minutes: 46 Total Treatment Time: 61 Procedures billed for this date of service:: eval low, estim unattended, Hot pack EVALUATION COMPLEXITY LEVEL EVALUATION COMPLEXITY LEVEL: HISTORY: Low, EXAM OF BODY SYSTEMS: Medium, CLINICAL PRESENTATION: Medium, CLINICAL DECISION MAKING: Low Assessment Assessment: pt presents with pain R SI joint, lumbar area. pt presents with large trigger point over R SI joint. pt with limited trunk rotation, tight piriformis. pt also presents with scoliosis. Patient Education: Home Exercise Program, Education of Plan of Care Rehab Potential: Good Short Term Goals Goal #1: pt rate pain at rest <4/10 Goal to be met by: 12/11/17 Goal #2: pt demonstrate decrease tightness B hamstrings equal. Goal to be met by: 12/11/17 Goal #3: pt report increased ability to perform chores at home with less pain Goal to be met by: 12/11/17 Goal #4: pt independent with initial HEP Goal to be met by: 12/11/17 Parts Puller Goals Goal #1: pt demonstrate ability to amb community distances without shifted posture Goal to be met by: 01/01/18 Goal #2: pt rate pain <2/10 at rest Goal to be met by: 01/01/18 Goal #3: pt without c/o radicular pain Goal to be met by: 01/01/18 Goal #4: pt to report ability to return to ride her horse. Goal to be met by: 01/01/18 Plan - Treatment to be Provided Procedures: Therapeutic Exercises, Therapeutic Activity, Manual Therapy, Massage , Patient Education Modalities: Electrical Stimulation, Ultrasound/Phonophoresis, Class IV Laser, Cryotherapy, Hot Packs - Treatment Plan Frequency: 2-3x week Duration: 6 weeks ORDER # VISITS AND/OR THROUGH DATE: 01/01/18 - Treatment Code (1) Right-sided low back pain with sciatica Code(s): M54.41 - LUMBAGO WITH SCIATICA, RIGHT SIDE Qualifiers: Chronicity: chronic Sciatica laterality: sciatica of right side Qualified Code(s): M54.41 - Lumbago with sciatica, right side; G89.29 - Other chronic pain (2) Sacroiliac dysfunction Code(s): M53.3 - SACROCOCCYGEAL DISORDERS, NOT ELSEWHERE CLASSIFIED (3) Muscle tightness Code(s): M62.89 - OTHER SPECIFIED DISORDERS OF MUSCLE
--- NOTE | 2017-11-22 16:12 | RS.OPPTDN ---
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 Reports feeling better following treatment and exercise. *Precautions: n/a Pain Assessment - Pain Description Pain Location: left hip, glut, lateral thigh Pain Description: Tightness, Aching Current Pain Intensity: mod - Treatment Modality: Electrical Stim Unattended Parameters/Method Applied: [id number] HVGC to 135p.v. with 4 pads crossed current to the left lowback into gluteal region with HP in sitting prior to EX. Patient Position: Sitting Interventions - Exercise/Activities/Manual Therapy Exercises/Activities: In supine, assisted stretching of hamstrings, SKTC, piriformis, ITB and heel cord, bilaterall but focus on the left. Isometric hip ext on the right and isometric hip flexion on lefft for MET. Isometric hip add and isometric ankle inversion, both with ball. Bridging and pelvic tilts. Patient duceion of body mechanics and HEP. Patient given copies of new exercises. Total minutes of Exercise: 25mins Manual Therapy: n/a HOME EXERCISE PROGRAM: pt given written HEP including prone lying, hamstring stretch, isometric hip add, lower trunk rotation stretch to L, - Charges Timed Code Treatment Minutes: 25mins Total Treatment Time: 45mins Procedures billed for this date of service:: HP Estim unattended, EX2 Assessment: Patient responds well to treatment with reports of reduction in pain. She is motivated to work on HEP and progress. Patient Education: Education of diagnosis, Body/Joint mechanics, Home Exercise Program, Home Safety, Activity Modification Comments: Patient education of safety with ADL's and HEP. Patient given copies. Patient demonstrates compliance with HEP?: Yes Short Term Goals Goal #1: pt rate pain at rest <4/10 Goal to be met by: 12/11/17 Progress towards Goal:: Progressing Goal #2: pt demonstrate decrease tightness B hamstrings equal. Goal to be met by: 12/11/17 Progress towards Goal:: Progressing Goal #3: pt report increased ability to perform chores at home with less pain Goal to be met by: 12/11/17 Goal #4: pt independent with initial HEP Goal to be met by: 12/11/17 Penitentiary Goals Goal #1: pt demonstrate ability to amb community distances without shifted posture Goal to be met by: 01/01/18 Goal #2: pt rate pain <2/10 at rest Goal to be met by: 01/01/18 Goal #3: pt without c/o radicular pain Goal to be met by: 01/01/18 Goal #4: pt to report ability to return to ride her horse. Goal to be met by: 01/01/18 Plan PLAN OF CARE EXPIRES ON:: 01/01/18 ORDER # VISITS AND/OR THROUGH DATE: 01/01/18 PLAN: Continue with modalities and progress exercises to reduce pain and increase functional activity level.
--- NOTE | 2017-11-26 15:46 | RS.OPPTDN ---
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 States she is working on HEP as instructed. *Precautions: n/a Pain Assessment - Pain Description Pain Location: Right hip Current Pain Intensity: mild - Treatment Modality: Electrical Stim Unattended Parameters/Method Applied: [id number] HVGC to 155p.v. 4 pads cross current to the right hip with HP prior to EX. Patient Position: Sitting - Heat/Cryotherapy Treatment: Hot Pack (with Estim ) Interventions - Exercise/Activities/Manual Therapy Exercises/Activities: In supine, assisted stretching of hamstrings, SKTC, piriformis, ITB and heel cord, bilaterall but focus on the left. Isometric hip ext on the right and isometric hip flexion on left for MET. Isometric hip add with ball. Bridging and pelvic tilts. Patient education correct exercise technique, body mechanics, safety, and HEP. No new exercises, focus on proper exercise to facilitate pelvic stability. Total minutes of Exercise: 14mins Manual Therapy: n/a HOME EXERCISE PROGRAM: pt given written HEP including prone lying, hamstring stretch, isometric hip add, lower trunk rotation stretch to L, - Charges Timed Code Treatment Minutes: 14mins Total Treatment Time: 42mins Procedures billed for this date of service:: HP, Estim unattended, EX Assessment: Patient responding to treatment with reports of reduction in pain. Patient is actively working on HEP. Patient Education: Body/Joint mechanics, Home Exercise Program Patient demonstrates compliance with HEP?: Yes Short Term Goals Goal #1: pt rate pain at rest <4/10 Goal to be met by: 12/11/17 Progress towards Goal:: Progressing Goal #2: pt demonstrate decrease tightness B hamstrings equal. Goal to be met by: 12/11/17 Progress towards Goal:: Progressing Goal #3: pt report increased ability to perform chores at home with less pain Goal to be met by: 12/11/17 Goal #4: pt independent with initial HEP Goal to be met by: 12/11/17 Dining Room Server Goals Goal #1: pt demonstrate ability to amb community distances without shifted posture Goal to be met by: 01/01/18 Goal #2: pt rate pain <2/10 at rest Goal to be met by: 01/01/18 Goal #3: pt without c/o radicular pain Goal to be met by: 01/01/18 Progress towards goal: Progressing Goal #4: pt to report ability to return to ride her horse. Goal to be met by: 01/01/18 Plan PLAN OF CARE EXPIRES ON:: 01/01/18 ORDER # VISITS AND/OR THROUGH DATE: 01/01/18 PLAN: Continue modalities and progress exercise to reduce pain and increase patients functional activity level.
--- NOTE | 2017-11-28 16:37 | RS.OPPTDN ---
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 States she may try to ride her horse a short distance this weekend. States she is working on HEP as instructed, and feels assisted stretching and MET's have helped a lot. *Precautions: n/a Pain Assessment - Pain Description Pain Location: right hip Pain Description: Dull, Aching Current Pain Intensity: mild to mod - Treatment Modality: Electrical Stim Unattended Parameters/Method Applied: [id number] 4pads cross current to the right gluteal region to 145p.v. with HP prior to EX. Patient Position: Sitting - Heat/Cryotherapy Treatment: Hot Pack ([id number] with Estim ) Interventions - Exercise/Activities/Manual Therapy Exercises/Activities: In supine, assisted stretching of hamstrings, SKTC, piriformis, ITB and heel cord, bilaterally with focus on the right. Isometric hip ext on the right and isometric hip flexion on left for MET, then isometric right hip abd for muscle energy. Isometric hip add with ball. Bridging and pelvic tilts. Patient education of Muscle Energy Technique. Patient instructed in proper exercise position, muscle engagement, and to increase bridging and trunk stability at home. Total minutes of Exercise: 17mins Manual Therapy: n/a HOME EXERCISE PROGRAM: pt given written HEP including prone lying, hamstring stretch, isometric hip add, lower trunk rotation stretch to L, - Charges Timed Code Treatment Minutes: 17mins Total Treatment Time: 42mins Procedures billed for this date of service:: HP, Estim unattended, EX Assessment: Patient responding to treatment with reports of reduction in pain and increase in mobility. She appears to be consistently working on HEP. Patient Education: Education of diagnosis, Body/Joint mechanics, Home Exercise Program, Home Safety, Activity Modification Patient demonstrates compliance with HEP?: Yes Short Term Goals Goal #1: pt rate pain at rest <4/10 Goal to be met by: 12/11/17 Progress towards Goal:: Partially Met Goal #2: pt demonstrate decrease tightness B hamstrings equal. Goal to be met by: 12/11/17 Progress towards Goal:: Progressing Goal #3: pt report increased ability to perform chores at home with less pain Goal to be met by: 12/11/17 Progress towards Goal:: Progressing Goal #4: pt independent with initial HEP Goal to be met by: 12/11/17 Progress towards Goal:: Partially Met [employer] Goals Goal #1: pt demonstrate ability to amb community distances without shifted posture Goal to be met by: 01/01/18 Goal #2: pt rate pain <2/10 at rest Goal to be met by: 01/01/18 Goal #3: pt without c/o radicular pain Goal to be met by: 01/01/18 Progress towards goal: Progressing Goal #4: pt to report ability to return to ride her horse. Goal to be met by: 01/01/18 Plan PLAN OF CARE EXPIRES ON:: 01/01/18 ORDER # VISITS AND/OR THROUGH DATE: 01/01/18 PLAN: Continue modalities and progress exercise to reduce pain and increase patients functional activity level.
--- NOTE | 2017-12-03 12:09 | RS.OPPTDN ---
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 She was able to ride her horse a short distance one day this weekend. Reports some increase in lowback discomfort. *Precautions: n/a Pain Assessment - Pain Description Pain Location: left hip/gluteal region Current Pain Intensity: mild Other Comments regarding Pain:: Lowback is bothering her today. Reports a decrease in pain following assisted stretching. - Treatment Modality: Electrical Stim Unattended Parameters/Method Applied: [id number] HVGC to the left gluteal region with 4 small pads cross current to 120p.v. with HP prior to EX. Patient Position: Sitting - Heat/Cryotherapy Treatment: Hot Pack ([id number] with Estim ) Interventions - Exercise/Activities/Manual Therapy Exercises/Activities: In supine, assisted stretching of hamstrings, SKTC, piriformis, ITB and heel cord, bilaterally with focus on the right. Isometric hip ext on the right and isometric hip flexion on left for MET. Then isometric right hip abd for muscle energy. Isometric hip add with ball. Bridging and pelvic tilts with continuous verbal cues for proper muscle engagement. Total minutes of Exercise: 14mins Manual Therapy: n/a HOME EXERCISE PROGRAM: pt given written HEP including prone lying, hamstring stretch, isometric hip add, lower trunk rotation stretch to L, - Charges Timed Code Treatment Minutes: 14mins Total Treatment Time: 34mins Procedures billed for this date of service:: HP, Estim unattended, EX Assessment: Patient reporting progress and being able to increase her light recreational activities. Patient Education: Body/Joint mechanics, Home Exercise Program, Home Safety, Activity Modification Patient demonstrates compliance with HEP?: Yes Short Term Goals Goal #1: pt rate pain at rest <4/10 Goal to be met by: 12/11/17 Progress towards Goal:: Partially Met Goal #2: pt demonstrate decrease tightness B hamstrings equal. Goal to be met by: 12/11/17 Progress towards Goal:: Progressing Goal #3: pt report increased ability to perform chores at home with less pain Goal to be met by: 12/11/17 Progress towards Goal:: Progressing Goal #4: pt independent with initial HEP Goal to be met by: 12/11/17 Progress towards Goal:: Partially Met Correction Goals Goal #1: pt demonstrate ability to amb community distances without shifted posture Goal to be met by: 01/01/18 Goal #2: pt rate pain <2/10 at rest Goal to be met by: 01/01/18 Goal #3: pt without c/o radicular pain Goal to be met by: 01/01/18 Progress towards goal: Progressing Goal #4: pt to report ability to return to ride her horse. Goal to be met by: 01/01/18 Plan PLAN OF CARE EXPIRES ON:: 01/01/18 ORDER # VISITS AND/OR THROUGH DATE: 01/01/18 PLAN: Progress with exercise to reduce pain and increase functional activity level.
--- NOTE | 2017-12-05 12:11 | RS.OPPTDN ---
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 States her LBP has been aggravated but is also better today. States she is working on HEP. *Precautions: n/a Pain Assessment - Pain Description Pain Location: Right hip/gluteal area Current Pain Intensity: 2-3/10 Other Comments regarding Pain:: Mild to mod LBP today. Reports a decrease in right hip pain with modalities and exercise. - Treatment Modality: Electrical Stim Unattended Parameters/Method Applied: [id number] HVGC to 125p.v. with 4 large pads cross current to the right gluteal and S-I joint with HP prior to EX. Patient Position: Sitting - Heat/Cryotherapy Treatment: Hot Pack ([id number] with Estim ) Interventions - Exercise/Activities/Manual Therapy Exercises/Activities: In supine, assisted stretching of hamstrings, SKTC, and piriformis, bilaterally with focus on the right. Isometric hip ext on the right and isometric hip flexion on left for MET. Alt right and left hip isometric hip flexion. Isometric trunk rotation in neutral. Isometric hip add with ball. Bridging and pelvic tilts. All exercise with continuous verbal cues for proper muscle engagement. Ended with assisted passive LTR stretching. Instructed patient in side-lying on pillow and UE extended overhead for passive paraspinal stretching due to patients scoliosis and muscle imbalance. Also instructed patient in side-lying DKTC to safely stretch lower lumbar paraspinals. Total minutes of Exercise: 14mins Manual Therapy: n/a HOME EXERCISE PROGRAM: pt given written HEP including prone lying, hamstring stretch, isometric hip add, lower trunk rotation stretch to L, Bridging, pelvic tilts. Side-lying trunk stretch, - Charges Timed Code Treatment Minutes: 14mins Total Treatment Time: 37mins Procedures billed for this date of service:: HP, Estim unattended, EX Assessment: Patient responding well to treatment, assisted stretching, and HEP with reports of reduction in pain and increase in daily activities. Patient Education: Body/Joint mechanics, Home Exercise Program, Home Safety, Activity Modification Patient demonstrates compliance with HEP?: Yes Short Term Goals Goal #1: pt rate pain at rest <4/10 Goal to be met by: 12/11/17 Progress towards Goal:: Partially Met Goal #2: pt demonstrate decrease tightness B hamstrings equal. Goal to be met by: 12/11/17 Progress towards Goal:: Met Goal #3: pt report increased ability to perform chores at home with less pain Goal to be met by: 12/11/17 Progress towards Goal:: Progressing Goal #4: pt independent with initial HEP Goal to be met by: 12/11/17 Progress towards Goal:: Met Residential Monitor Goals Goal #1: pt demonstrate ability to amb community distances without shifted posture Goal to be met by: 01/01/18 Goal #2: pt rate pain <2/10 at rest Goal to be met by: 01/01/18 Progress towards goal: Progressing Goal #3: pt without c/o radicular pain Goal to be met by: 01/01/18 Progress towards goal: Partially Met Goal #4: pt to report ability to return to ride her horse. Goal to be met by: 01/01/18 Progress towards goal: Progressing Plan PLAN OF CARE EXPIRES ON:: 01/01/18 ORDER # VISITS AND/OR THROUGH DATE: 01/01/18 PLAN: Continue and progress exercise to reduce pain and increase ability to perform functional and recreational activities.
== END 2017-12-06 23:59 ==
PROVIDERS: ATTEND Nurse Practitioner
DX: M54.41 Lumbago with sciatica, right side (principal); G89.29 Other chronic pain; M53.3 Sacrococcygeal disorders, not elsewhere classified; M54.30 Sciatica, unspecified side; M62.89 Other specified disorders of muscle

== ENCOUNTER 2017-12-16 11:00 | Outpatient (RCR) | payer OTHER ==
--- NOTE | 2017-12-12 16:13 | RS.OPPTDN ---
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 Reports she is working on basic HEP. States decreased pain and increased flexibility after todays treatment. *Precautions: n/a Pain Assessment - Pain Description Pain Location: Right hip Current Pain Intensity: 6-7/10 prior to, 10 following - Treatment Modality: Electrical Stim Unattended Parameters/Method Applied: [id number] HVGC to 125p.v. 4 large pads to the right gluts and across lower lumbar paraspinals with HP prior to EX. Patient Position: Sitting - Heat/Cryotherapy Treatment: Hot Pack ([id number] with Estim ) Interventions - Exercise/Activities/Manual Therapy Exercises/Activities: In supine, assisted stretching of hamstrings, SKTC, and piriformis, bilaterally. Isometric hip ext on the right and isometric hip flexion on left for MET. Alt right and left hip isometric hip flexion. Isometric trunk rotation in neutral. Isometric hip add with ball. All exercise with continuous verbal cues for proper muscle engagement. Ended with assisted passive LTR stretching. Instructed patient in side-lying on pillow and UE extended overhead for passive paraspinal stretching due to patients scoliosis and muscle imbalance. Also instructed patient in side-lying DKTC to safely stretch lower lumbar paraspinals. Total minutes of Exercise: 16mins Manual Therapy: n/a HOME EXERCISE PROGRAM: pt given written HEP including prone lying, hamstring stretch, isometric hip add, lower trunk rotation stretch to L, Bridging, pelvic tilts. Side-lying trunk stretch, - Charges Timed Code Treatment Minutes: 16mins Total Treatment Time: 42mins Procedures billed for this date of service:: HP, Estim unattended, EX Assessment: Patient with flair-up today but responds to treatment with reports of pain reduction and increased flexibility. Patient Education: Body/Joint mechanics, Home Exercise Program, Activity Modification Patient demonstrates compliance with HEP?: Yes Short Term Goals Goal #1: pt rate pain at rest <4/10 Goal to be met by: 12/11/17 Progress towards Goal:: Partially Met Goal #2: pt demonstrate decrease tightness B hamstrings equal. Goal to be met by: 12/11/17 Progress towards Goal:: Met Goal #3: pt report increased ability to perform chores at home with less pain Goal to be met by: 12/11/17 Progress towards Goal:: Progressing Goal #4: pt independent with initial HEP Goal to be met by: 12/11/17 Progress towards Goal:: Met Assisted Goals Goal #1: pt demonstrate ability to amb community distances without shifted posture Goal to be met by: 01/01/18 Progress towards goal: Progressing Goal #2: pt rate pain <2/10 at rest Goal to be met by: 01/01/18 Progress towards goal: Progressing Goal #3: pt without c/o radicular pain Goal to be met by: 01/01/18 Progress towards goal: Partially Met Goal #4: pt to report ability to return to ride her horse. Goal to be met by: 01/01/18 Progress towards goal: Progressing Plan PLAN OF CARE EXPIRES ON:: 01/01/18 ORDER # VISITS AND/OR THROUGH DATE: 01/01/18 PLAN: Continue next week to reduce pain and increase functional amb and mobility.
--- NOTE | 2017-12-16 16:00 | RS.OPPTDN ---
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 States she is working on HEP. *Precautions: n/a Pain Assessment - Pain Description Pain Location: right hip, S-I joint, and bilateral lumbar paraspinals Pain Description: Tightness, Aching Current Pain Intensity: mild to mod right hip - Treatment Modality: Electrical Stim Unattended () Parameters/Method Applied: [id number] HVGC to 140p.v. with 4 large pads to the right gluteal region and across the lowback with HP prior to EX. Patient Position: Sitting Interventions - Exercise/Activities/Manual Therapy Exercises/Activities: In supine, assisted stretching of hamstrings, SKTC, and piriformis, bilaterally. Isometric hip ext on the right and isometric hip flexion on left for MET. Alt right and left hip isometric hip flexion. Isometric trunk rotation in neutral. Isometric hip add with ball. All exercise with continuous verbal cues for proper muscle engagement. Ended with assisted passive LTR stretching. Instructed patient in side-lying on pillow and UE extended overhead for passive paraspinal stretching due to patients scoliosis and muscle imbalance. Also instructed patient in side-lying DKTC to safely stretch lower lumbar paraspinals. Total minutes of Exercise: 14 Manual Therapy: n/a HOME EXERCISE PROGRAM: pt given written HEP including prone lying, hamstring stretch, isometric hip add, lower trunk rotation stretch to L, Bridging, pelvic tilts. Side-lying trunk stretch, - Charges Timed Code Treatment Minutes: 14mins Total Treatment Time: 36mins Procedures billed for this date of service:: HP, Estim unattended, EX Assessment: Patient responding to treatment with reports of reduction in pain. Patient Education: Body/Joint mechanics, Home Exercise Program, Home Safety, Activity Modification Patient demonstrates compliance with HEP?: Yes Short Term Goals Goal #1: pt rate pain at rest <4/10 Goal to be met by: 12/11/17 Progress towards Goal:: Met Goal #2: pt demonstrate decrease tightness B hamstrings equal. Goal to be met by: 12/11/17 Progress towards Goal:: Met Goal #3: pt report increased ability to perform chores at home with less pain Goal to be met by: 12/11/17 Progress towards Goal:: Partially Met Goal #4: pt independent with initial HEP Goal to be met by: 12/11/17 Progress towards Goal:: Met Detention Goals Goal #1: pt demonstrate ability to amb community distances without shifted posture Goal to be met by: 01/01/18 Progress towards goal: Partially Met Goal #2: pt rate pain <2/10 at rest Goal to be met by: 01/01/18 Progress towards goal: Partially Met Goal #3: pt without c/o radicular pain Goal to be met by: 01/01/18 Progress towards goal: Partially Met Goal #4: pt to report ability to return to ride her horse. Goal to be met by: 01/01/18 Progress towards goal: Partially Met Plan PLAN OF CARE EXPIRES ON:: 01/01/18 ORDER # VISITS AND/OR THROUGH DATE: 01/01/18 PLAN: Patient scheduled for injection this week. Will reassess progress and need to continue.
--- NOTE | 2017-12-31 08:48 | RS.OPPTDC ---
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 Garnett reported improvement in her pain, activity at home, and being able to ride a horse a short distance. Reports pain <4/10. Functional Outcome Measure Oswestry LBP: 26 - G Codes & Severity Modifier G Codes & Modifier: Mob goal CI. Mob D/C CJ Source of G Code score: Oswestry Interventions - Exercise/Activities/Manual Therapy Exercises/Activities: NA Manual Therapy: n/a HOME EXERCISE PROGRAM: pt given written HEP including prone lying, hamstring stretch, isometric hip add, lower trunk rotation stretch to L, Bridging, pelvic tilts. Side-lying trunk stretch, - Objective Findings Observations,measurements,etc.: Mrs. Garnett demonstrates independence with HEP. Demonstrates improved posture with ambulation and shows improved postural awareness. - Charges Timed Code Treatment Minutes: NA Total Treatment Time: NA Procedures billed for this date of service:: NA Assessment Assessment: Patient reports improved pain level and able to perform light ADL' s. She met 3/4 STG's and progressed with all goals. LTG's not met due to patient not continuing her plan of care. Short Term Goals Goal #1: pt rate pain at rest <4/10 Goal to be met by: 12/11/17 Progress towards Goal:: Met Goal #2: pt demonstrate decrease tightness B hamstrings equal. Goal to be met by: 12/11/17 Progress towards Goal:: Met Goal #3: pt report increased ability to perform chores at home with less pain Goal to be met by: 12/11/17 Progress towards Goal:: Partially Met Goal #4: pt independent with initial HEP Goal to be met by: 12/11/17 Progress towards Goal:: Met Usp Goals Goal #1: pt demonstrate ability to amb community distances without shifted posture Goal to be met by: 01/01/18 Progress towards goal: Partially Met Goal #2: pt rate pain <2/10 at rest Goal to be met by: 01/01/18 Progress towards goal: Partially Met Goal #3: pt without c/o radicular pain Goal to be met by: 01/01/18 Progress towards goal: Partially Met Goal #4: pt to report ability to return to ride her horse. Goal to be met by: 01/01/18 Progress towards goal: Partially Met Plan Reason for Discharge:: Self-Discharge
== END 2018-01-05 23:59 ==
PROVIDERS: ATTEND Nurse Practitioner
DX: M54.41 Lumbago with sciatica, right side (principal); G89.29 Other chronic pain; M53.3 Sacrococcygeal disorders, not elsewhere classified; M54.30 Sciatica, unspecified side

== ENCOUNTER 2018-12-03 11:00 | Outpatient (RCR) | payer OTHER ==
--- NOTE | 2018-11-25 13:23 | RS.OPPTEV2 ---
Date of Note: 11/24/18 Visit #: 1 Number of visits approved by Insurance: n/a Date of Evaluation: 11/24/18 Payer Source: MEDICARE Surgery Performed?: No Treatment Diagnosis: Low back pain History of Condition/Mechanism of Injury:: pt has had long history of LBP. pt has previously been a pt of Dr. Krishna for injections without good results. pt has also been seen by a chiropractor. Prior Level of Function.....Patient was independent with: ADL's, Self Care, Caregiving, Ambulation/Mobility, Community Integration/Access Functional Limitations: Sleep, Pushing, Pulling, Lifting, Carrying, Standing, Bending, Ambulation Current Subjective/complaints:: pt states that her LBP has increased. States that typically has pain into RLE however has been having pain into L LE. States that pain has increased recently, and steroids have not helped much this time. 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 B hamstring tightness L worse than R. B piriformis tightness L worse than R Posture: Forward Head, Rounded Shoulders, Increased Thoracic Kyphosis, Decreased Lumbar Lordosis Handedness: Right Gait - Gait Pattern General Gait Pattern Observation: No Deviations/Normal General Range of Motion: BUE WFL's. BLE WFL's Muscle Strength: BUE grossly 5/5 - ROM Lumbar Flexion: Hand reach to Mid-Shins Sidebending to Left: Reach to Lateral Joint Line Sidebending to Right: Reach to Lateral Joint Line Lumbar Spine ROM Limitations: Soft Tissue Tightness, Muscle Weakness, Pain Comments: pt with pain with flex - Strength Trunk Extension: 4 Good Trunk Flexion: 4- Good- Trunk Lateral Flexion: 4- Good- Trunk Rotation: 4- Good- - Special Tests DEISY Test: Negative Left, Negative Right SLR Test: Positive Left SI Joint Compression: Positive SI Joint Distraction: Negative Palpation Palpation Findings: Tenderness, Trigger Point Comments:: tenderness noted in low back especially on L. pt with trigger point noted on L SI. Sensation - Sensation Right Upper Extremity: Intact/Normal Left Upper Extremity: Intact/Normal Right Lower Extremity: Intact/Normal Left Lower Extremity: Impaired (pt with radicular pain into L hip and into L thigh.) Balance - Sitting Balance Static Sitting Balance: Normal Dynamic Sitting Balance: Normal - Standing Balance Static Standing Balance: Normal Dynamic Standing Balance: Normal - Treatment Modality: Electrical Stim Unattended Parameters/Method Applied: IFC x 20 mins at 15ma Treatment Area: L lumbar Patient Position: Sitting - Heat/Cryotherapy Treatment: Cryotherapy Comments:: L lumbar Interventions - Exercise/Activities/Manual Therapy Exercises/Activities: pt performed pelvic tilt, hamstring stretch, piriformis stretch, isometric hip add Manual Therapy: n/a HOME EXERCISE PROGRAM: pt given written HEP including: pelvic tilt, hamstring stretch, piriformis stretch, isometric hip add. - Charges Timed Code Treatment Minutes: 41 Total Treatment Time: 62 Procedures billed for this date of service:: eval low, estim, CP EVALUATION COMPLEXITY LEVEL EVALUATION COMPLEXITY LEVEL: HISTORY: Low, EXAM OF BODY SYSTEMS: Low, CLINICAL PRESENTATION: Low, CLINICAL DECISION MAKING: Low Assessment Assessment: pt presents with pain in lumbar spine with trigger point in area of L SI. pt also presents with leg length discrepancy L longer than R, pt also with radicular pain into L hip into L quad. Patient Education: Home Exercise Program, Education of Plan of Care Rehab Potential: Good Short Term Goals Goal #1: pt independent with initial HEP Goal to be met by: 12/12/18 Goal #2: pt demonstrate decrease tightness B hamstrings/piriformis equal. Goal to be met by: 12/12/18 Goal #3: Leg length equal Goal to be met by: 12/12/18 Goal #4: Decreased lumbar pain < 6/10 Goal to be met by: 12/12/18 [employer] Professor Goals Goal #1: pt able to stand long enough to complete daily provider contracting consultant Goal to be met by: 01/02/19 Goal #2: pt rate pain <2/10 with no radicular pain noted Goal to be met by: 01/02/19 Goal #3: pt able to sleep uninterruped > 4 hours Goal to be met by: 01/02/19 Plan - Treatment to be Provided Procedures: Therapeutic Exercises, Therapeutic Activity, Manual Therapy, Massage , Patient Education Modalities: Electrical Stimulation, Ultrasound/Phonophoresis, Class IV Laser, Cryotherapy, Hot Packs - Treatment Plan Frequency: 2-3x week Duration: 6 weeks Dates of Retirement Goals: 01/02/19 Expiration date of current Insurance Approval:: n/a - Treatment Code (1) Radicular low back pain Code(s): M54.10 - RADICULOPATHY, SITE UNSPECIFIED (2) Muscle tightness Code(s): M62.89 - OTHER SPECIFIED DISORDERS OF MUSCLE (3) Sacroiliac dysfunction Code(s): M53.3 - SACROCOCCYGEAL DISORDERS, NOT ELSEWHERE CLASSIFIED
--- NOTE | 2018-11-26 15:20 | RS.OPPTDN ---
Subjective Date of Note: 11/26/18 Visit #: 2 Number of visits approved by Insurance: Reassess at 10th Date of Evaluation: 11/24/18 Payer Source: MEDICARE Treatment Diagnosis: Low back pain Current Subjective/complaints:: Patient says she felt some relief with treatment at [facility], but was temporary. She says as soon as the rain front moved through, pain level returned. States she is more concerned with her L sided back pain than the pain running into her leg. States it extends to the front of her L thigh. She has started HEP twice daily and denies difficulty. She says today she is battling a cold currently. *Precautions: n/a - Treatment Modality: Electrical Stim Unattended Parameters/Method Applied: IFC at 18 ma x 20 mins covering the LLB/glut and SI joint Patient Position: Right Sidelying - Heat/Cryotherapy Treatment: Hot Pack Interventions - Exercise/Activities/Manual Therapy Exercises/Activities: Patient receives assisted stretching to the LLE including SKTC, HS, Piriformis, Figure 4, and lower trunk rotation x 4. Patient begins pillow squeezes x 10 and isometric hip abd x 5. Reviewed HEP and discussed anatomy, diagnosis, and explained therex performed today. Total minutes of Exercise: 18 Manual Therapy: n/a HOME EXERCISE PROGRAM: pt given written HEP including: pelvic tilt, hamstring stretch, piriformis stretch, isometric hip add. - Charges Timed Code Treatment Minutes: 18 Total Treatment Time: 38 Procedures billed for this date of service:: hp, estim (un), ex Assessment: Patient barbie increased intensity on estim today experiencing improved pain through modalities and assisted stretching. She is compliant with performing HEP twice daily. She should benefit from continued assisted stretching for HS and piriformis consistently as well as pelvic stability to improve SI joint pain. Patient Education: Education of diagnosis, Home Exercise Program, Education of Plan of Care Patient demonstrates compliance with HEP?: Yes Short Term Goals Goal #1: pt independent with initial HEP Goal to be met by: 12/12/18 Progress towards Goal:: Progressing Goal #2: pt demonstrate decrease tightness B hamstrings/piriformis equal. Goal to be met by: 12/12/18 Goal #3: Leg length equal Goal to be met by: 12/12/18 Goal #4: Decreased lumbar pain < 6/10 Goal to be met by: 12/12/18 [employer] Goals Goal #1: pt able to stand long enough to complete daily ka[place]ina Goal to be met by: 01/02/19 Goal #2: pt rate pain <2/10 with no radicular pain noted Goal to be met by: 01/02/19 Goal #3: pt able to sleep uninterruped > 4 hours Goal to be met by: 01/02/19 Goal #4: pt to report ability to return to ride her horse. Goal to be met by: 01/01/18 Progress towards goal: Partially Met Plan Dates of [employer] Goals: 01/02/19 Expiration date of current Insurance Approval:: 01/02/19 PLAN: Patient to continue with modalities and progressive therex to improve flexibility and strengthening to pelvis/hips to decrease pain with gait.
--- NOTE | 2018-12-01 12:06 | RS.OPPTDN ---
Subjective Date of Note: 12/01/18 Visit #: 4 Number of visits approved by Insurance: Reassess at 10 Date of Evaluation: 11/24/18 Payer Source: MEDICARE Treatment Diagnosis: Low back pain Current Subjective/complaints:: Patient says she is feeling surprising well despite the weather. She reports her pain is less intense. States it is still difficult for her to stand for very long. Pain remains mostly to the L SI/glut , but does hurt across the low back with prolonged standing. *Precautions: n/a - Treatment Modality: Electrical Stim Unattended Parameters/Method Applied: hivolt 2 large pads at the lumbar paraspinals and 2 at the L SI joint @ 170 pk volts x 20 mins Patient Position: Right Sidelying - Heat/Cryotherapy Treatment: Hot Pack Interventions - Exercise/Activities/Manual Therapy Exercises/Activities: Patient receives continued assisted stretching to the bilateral LE including SKTC, HS, Piriformis, Figure 4, and lower trunk rotation x 4. Patient continues with stability exercises: hooklying-- pillow squeezes 2 x 10 and hip abd with red tband , and isometric hip flexion x 5. QS x 10. Bridging 2x5. Reviewed HEP and discussed anatomy, diagnosis, and explained therex performed today. Total minutes of Exercise: 17 Manual Therapy: n/a HOME EXERCISE PROGRAM: pt given written HEP including: pelvic tilt, hamstring stretch, piriformis stretch, isometric hip add. - Charges Timed Code Treatment Minutes: 17 Total Treatment Time: 37 Procedures billed for this date of service:: hp, estim (un), ex Assessment: Patient presents with reduced intensity of pain to the L SI and low back. She appears to barbie and respond to treatment well as we are also progressing with trunk stability. Patient Education: Education of diagnosis, Body/Joint mechanics, Home Exercise Program Patient demonstrates compliance with HEP?: Yes Short Term Goals Goal #1: pt independent with initial HEP Goal to be met by: 12/12/18 Progress towards Goal:: Progressing Goal #2: pt demonstrate decrease tightness B hamstrings/piriformis equal. 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 Goal to be met by: 01/01/18 Progress towards goal: Partially Met Plan Dates of Waste/Materials Exchange Specialist Goals: 01/02/19 Expiration date of current Insurance Approval:: 01/02/19 PLAN: Patient to continue
--- NOTE | 2018-12-03 16:27 | RS.OPPTDN ---
Subjective Date of Note: 12/03/18 Visit #: 5 Number of visits approved by Insurance: Reassess at 10 Date of Evaluation: 11/24/18 Payer Source: MEDICARE Treatment Diagnosis: Low back pain Current Subjective/complaints:: Patient says she is really hurting today. States she feels she is "dragging" the LLE. Reports she will not be able to attend PT until next and Saturday. She says she is brazing machine tender at the SI joint and hip, but also says pain extends across her waistline. *Precautions: n/a - Treatment Modality: Electrical Stim Unattended Parameters/Method Applied: Hivolt 4 large pads: 2 placed at the L SI @ 170 pk volts and 2 at the lumbar paraspinals @ 150 pk volts x 20 mins Patient Position: Right Sidelying - Heat/Cryotherapy Treatment: Hot Pack Interventions - Exercise/Activities/Manual Therapy Exercises/Activities: Patient receives continued assisted stretching to the bilateral LE including SKTC, HS, Piriformis, Figure 4, and lower trunk rotation x 4. Patient continues with stability exercises: hooklying-- pillow squeezes 2 x 10 and hip abd with red tband , and isometric hip flexion x 5. QS x 10. Bridging 2x5. QS, and SLR x 10, 5 reps. Reviewed HEP and discussed anatomy, diagnosis, and explained therex performed today. Total minutes of Exercise: 16 Manual Therapy: n/a HOME EXERCISE PROGRAM: pt given written HEP including: pelvic tilt, hamstring stretch, piriformis stretch, isometric hip add. - Charges Timed Code Treatment Minutes: 16 Total Treatment Time: 36 Procedures billed for this date of service:: hp, estim (un), ex Assessment: Patient barbie modalities slightly higher relieving her pain and demo increased flexibility to the LLE. She is able to progress with trunk stability today with only mild fatigue. Patient Education: Education of diagnosis, Body/Joint mechanics, Home Exercise Program Patient demonstrates compliance with HEP?: Yes Short Term Goals Goal #1: pt independent with initial HEP Goal to be met by: 12/12/18 Progress towards Goal:: Progressing Goal #2: pt demonstrate decrease tightness B hamstrings/piriformis equal. 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 Goal to be met by: 01/01/18 Progress towards goal: Partially Met Plan Dates of Usp Goals: 01/02/19 Expiration date of current Insurance Approval:: 01/02/19 PLAN: Patient to continue BIW next week and then reassess.
== END 2018-12-06 23:59 ==
PROVIDERS: ATTEND Orthopaedic Surgery Orthopaedic Surgery of the Spine
DX: M54.5 Low back pain (principal)